=== PATIENT | male | born 1980 ===

== ENCOUNTER 2017-02-06 11:13 | Day surgery (SDC) | payer OTHER ==
[2017-02-06 11:34] VITALS: BMI 27.4
[2017-02-06 11:59] VITALS: RESP 18
[2017-02-06] MEDS ORDERED: Lidocaine 1% Inj (20ml) ONE (13:04)
[2017-02-06 14:18] VITALS: PULSE 68; O2SAT 100
--- NOTE | 2017-02-06 14:22 | PCM.SURG1 ---
Surgeon's Initial Post Op Note - Surgeon's Notes Surgeon: Dr. King Transitions Rn Care Coordinator: Dr. Turner PGY-1, Dr. Dickinson PGY-2 Type of Anesthesia: Local Pre-Operative Diagnosis: lipoma, inferior to scapula Operative Findings: see operative report Post-Operative Diagnosis: see operative report Operation Performed: excision of lipoma, inferior to right scapula Specimen/Specimens Removed: lipoma Estimated Blood Loss: EBL {In ML}: 5 Blood Products Given: N/A Drains Used: No Drains Post-Op Condition: Good Date of Surgery/Procedure: 02/06/17 Time of Surgery/Procedure: 13:35
--- NOTE | 2017-02-06 14:29 | CP.SDSHP ---
Same Day Surgery H & P - History Proposed Procedure: excision of lipoma of back inferior to scapula Pre-Op Diagnosis: lipoma of back, inferior to scapula - Allergies Allergies: Allergies No Known Allergies Allergy (Verified 02/06/17 11:34) - Physical Exam Vital Signs: Vital Signs 02/06/17 02/06/17 02/06/17 11:45 13:30 13:35 Temperature 98.3 F Pulse Rate 60 62 77 Respiratory 18 18 18 Rate Blood Pressure 115/66 132/83 142/80 O2 Sat by Pulse 96 99 97 Oximetry 02/06/17 02/06/17 02/06/17 13:40 13:45 13:55 Temperature Pulse Rate 77 48 L 67 Respiratory 16 16 18 Rate Blood Pressure 131/89 96/57 L 127/83 O2 Sat by Pulse 99 100 100 Oximetry 02/06/17 14:00 Temperature Pulse Rate 68 Respiratory 18 Rate Blood Pressure 129/84 O2 Sat by Pulse 100 Oximetry Neuro: WNL Heart: WNL Lungs: WNL GI: WNL - {Optional Preform as Required} Abdomen: WNL Integument: Other (lipoma in back) - Impression Pt. Evaluated Today:Candidate for Anesthesia & Procedure: (local sedation) - Date & Time Date: 02/06/17 Time: 14:30 Short Stay Discharge - Short Stay Discharge Admitting Diagnosis/Reason for Visit: D17.9 Disposition: HOME/ ROUTINE Referrals: FAMILY PROVIDER,NO [Primary Care Provider] - Follow-up: F/U in 10-14 days in office Additional Instructions (Diet, Activity): Do not take baths, only showers Do not submerge in water (i.e. pools, bath, beach, etc.)
[2017-02-06 14:30] VITALS: BP 117/67; TEMP 98.2
--- NOTE | 2017-02-10 09:27 | OP ---
PROCEDURE DATE: 02/06/2017 SURGEON: Dr. King DIVERSITY MANAGER: Dr. Turner ANESTHESIA: Local 1% lidocaine. PREOPERATIVE DIAGNOSIS: Lipoma, right scapular area. POSTOPERATIVE DIAGNOSIS: Lipoma, right scapular area. PROCEDURE: Excision of a lipoma, right posterior trunk. DESCRIPTION OF OPERATION: With the patient in the prone position, the right upper back and shoulder area were prepped and draped in the usual sterile manner. The patient was noted to have a soft, firm , 3-inch mass located just inferior to the edge of the right scapula. The skin overlying this was in filtrated with 1% lidocaine and a transverse incision was made using primarily blunt dissection. A y ellow lobulated mass with the gross appearance of lipoma was exposed and delivered from a position ju st deep to the superficial fibers of the rhomboid muscle. The mass was from deep attachmen ts with cautery being used only for the final attachments after the remainder of the mass had been de livered. The operative site was examined for hemostasis and closure was performed with running subcu ticular suture of 4-0 Monocryl and Steri-Strips. Dry sterile dressing was applied. The patient tole rated the procedure well and transferred back to day stay in stable condition. Estimated blood loss for the procedure was 5 mL. Murray King MD cc: 58 TT: 02/10/2017 09:27:31 en
== END 2017-02-06 14:45 | disposition home or self-care (01) ==
LOC: H.OPSURG 11:13
PROVIDERS: ATTEND Specialist
DX: D17.79 Benign lipomatous neoplasm of other sites (principal)

== ENCOUNTER 2017-12-18 22:10 | Emergency (ER) | payer OTHER, SELFPAY ==
[2017-12-18 22:10] VITALS: BMI 27.4
[2017-12-18 22:23] VITALS: BP 144/97; PULSE 74; RESP 16; TEMP 99; O2SAT 100
[2017-12-18] MEDS ORDERED: Alum-Mag Hydrox-Simethicone Susp (30 mL) PO STA (23:00)
--- NOTE | 2017-12-18 23:39 | ED PDOC ---
HPI: Abdomen Time Seen by Provider: 12/18/17 22:30 Chief Complaint (Nursing): Abdominal Pain Chief Complaint (Provider): Abdominal Pain History Per: Patient History/Exam Limitations: no limitations Onset/Duration Of Symptoms: Days (x 2 weeks) Current Symptoms Are (Timing): Still Present Context: Food (possibly ) Additional Complaint(s): 37 year old male with no significant past medical history presents to the ED complaining of epigastric pain, onset two weeks ago. Patient reports the pain radiates to chest up into his throat. The pain might be related to food. Denies any shortness of breath, nausea, vomiting, and diarrhea. PMD: none provided Past Medical History Reviewed: Historical Data Vital Signs: Last Vital Signs Temp 99.0 F 12/18/17 22:21 Pulse 74 12/18/17 22:21 Resp 16 12/18/17 22:21 BP 144/97 H 12/18/17 22:21 Pulse Ox 100 12/18/17 23:43 - Medical History PMH: No Chronic Diseases - Surgical History Surgical History: No Surg Hx - Family History Family History: States: Unknown Family Hx - Home Medications Home Medications: Ambulatory Orders Medication Instructions Recorded Omeprazole 20 mg PO DAILY #30 capsule. 12/19/17 - Allergies Allergies/Adverse Reactions: Allergies Allergy/AdvReac Type Severity Reaction Status Date / Time No Known Allergies Allergy Verified 12/18/17 22:21 Review of Systems ROS Statement: Except As Marked, All Systems Reviewed And Found Negative Respiratory: Negative for: Shortness of Breath Gastrointestinal: Positive for: Abdominal Pain. Negative for: Nausea, Vomiting , Diarrhea Physical Exam - Reviewed Nursing Documentation Reviewed: Yes Vital Signs Reviewed: Yes - Physical Exam Appears: Positive for: Non-toxic, No Acute Distress Head Exam: Positive for: ATRAUMATIC, NORMOCEPHALIC Skin: Positive for: Normal Color, Warm, Dry Eye Exam: Positive for: EOMI, Normal appearance, PERRL Neck: Positive for: Normal, Painless ROM, Supple Cardiovascular/Chest: Positive for: Regular Rate, Rhythm Respiratory: Positive for: CNT, Normal Breath Sounds Gastrointestinal/Abdominal: Positive for: Normal Exam, Soft Back: Positive for: Normal Inspection Extremity: Positive for: Normal ROM. Negative for: Deformity Neurologic/Psych: Positive for: Alert, Oriented. Negative for: Motor/Sensory Deficits - Laboratory Results Result Diagrams: 12/18/17 23:31 01/31/18 23:31 - ECG O2 Sat by Pulse Oximetry: 100 (RA) Pulse Ox Interpretation: Normal Medical Decision Making Medical Decision Making: Time: 23:00 Impression: gastritis Initial Plan: --CMP --Lipase --CBC with differentials --Lidocaine 2% viscous 15 ml PO --Maalox 30 ml PO --Pepcid 20 mg PO 100 Pt. feeling much better, no longer c/o of abdominal pain. Will d/c home with PPI. Return precautions discussed. Scribe Attestation: Documented by Mandie Rosales, acting as a scribe for Vinay Mcdonald MD. Provider Scribe Attestation: All medical record entries made by the Scribe were at my direction and personally dictated by me. I have reviewed the chart and agree that the record accurately reflects my personal performance of the history, physical exam, medical decision making, and the department course for this patient. I have also personally directed, reviewed, and agree with the discharge instructions and disposition. Disposition - Clinical Impression Clinical Impression: Gastritis - Disposition Referrals: [facility] [Outside] Disposition Time: 01:00 Condition: IMPROVED Prescriptions: Omeprazole 20 mg PO DAILY #30 capsule. Instructions: Gastritis (ED), Diet for Ulcers and Gastritis (GEN) Forms: [employer] (Portuguese) Print Language: [place]
[2017-12-18 23:55] LABS: BASO % 0.2 % (0.0-2.0); EOS # 0.1 K/uL (0.0-0.7); EOS % 0.8 % (0.0-4.0); HEMOGLOBIN 13.9 g/dL (12.0-18.0); LYMPH # 1.5 K/uL (1.0-4.3); LYMPH % 19.2 % (20.0-40.0); MEAN CELL VOLUME 86.7 fl (80.0-94.0); MEAN CORPUSCULAR HEMOGLOBIN 29.1 pg (27.0-31.0); MEAN CORPUSCULAR HGB CONC 33.5 g/dL (33.0-37.0); MEAN PLATELET VOLUME 8.9 fl (7.2-11.7); MONO # 0.6 K/uL (0.0-0.8); MONO % 8.3 % (0.0-10.0); NEUT # 5.5 K/uL (1.8-7.0); NEUT % 71.5 % (50.0-75.0); NRBC % 0.1 % (0.0-0.0); RBC 4.77 Mil/uL (4.40-5.90); WHITE BLOOD COUNT 7.7 K/uL (4.8-10.8)
[2017-12-19 00:04] LABS: ALB/GLOB RATIO 1.3 (1.0-2.1); ALBUMIN 4.3 g/dL (3.5-5.0); ALT/SGPT 42 U/L (21-72); AST/SGOT 29 U/L (17-59); BLOOD UREA NITROGEN 19 mg/dl (9-20); CALCIUM 9.6 mg/dL (8.4-10.2); GFR AFRICAN-AMERICAN > 60; GFR NON-AFRICAN AMERICAN > 60; LIPASE 123 U/L (23-300)
== END 2017-12-19 00:45 | disposition home or self-care (01) ==
LOC: H.ER 22:10
DX: K29.70 Gastritis, unspecified, without bleeding (principal)